=== PATIENT | male | born 1965 | race Caucasian/White ===

== ENCOUNTER → 2018-05-10 | Day surgery (SDC) | payer BC ==
[~2018-05-10] MED LIST: DEXILANT60 MG PO; FENTANYL CITRATE/PF 100MCG/2 ML INJ ONE; FLONASE16 GM; HYOSCYAMINE SULFATE 0.5 MG/ML AMP ONE; LEVOTHYROXINE50 MCG PO; LEXAPRO10 MG PO; LISINOPRIL10 MG PO; MIDAZOLAM HCL 2 MG/2 ML VIAL ONE; NEXIUM40 MG PO; PANTOPRAZOLE SO40 MG PO
--- NOTE | 2018-05-10 17:50 | Operative Report ---
DATE OF PROCEDURE: May 10, 2018 REFERRING PHYSICIAN: Dr. Luis Enrique Maxwell. PROCEDURE PERFORMED: 1. Esophagogastroduodenoscopy with esophageal dilatation and biopsies. 2. Colonoscopy. INDICATIONS FOR ESOPHAGOGASTRODUODENOSCOPY: Dysphagia, heartburn ingestion. INDICATIONS FOR COLONOSCOPY: Colorectal cancer screening, personal history of colon polyps. MEDICATION: Patient was done under MAC. Please see anesthesiologist's note. PROCEDURE: With the patient in the left lateral decubitus position, the flexible fiberoptic Olympus gastroscope was introduced into the esophagus under direct visualization without any difficulty. There was some patchy erythema noted in the distal esophagus. A mild stricture was noted at the GE junction, and that was dilated to a size 52-[place]. The scope was then advanced with ease into the stomach, and mucosa overlying the antrum and the body revealed some patchy erythema and low-grade edema, and biopsies were obtained and sent to stain for H. pylori. Several hyperplastic-appearing polyps were noted in the body of the stomach. Some were partially excised with the cold biopsy forceps. The pylorus was of normal contour and shape, was intubated with ease, and the scope was advanced all the way to the 2nd portion of the duodenum. The scope was then withdrawn slowly. Mucosa overlying the proximal 2nd portion and the duodenal bulb appeared to be within normal limits. The scope was then withdrawn back into the stomach and retroflexed, and the mucosa overlying the fundus and the cardia appeared to be within normal limits. The scope was then straightened out. The stomach was decompressed. The scope was subsequently withdrawn. Patient tolerated procedure well. IMPRESSION: 1. Distal esophagitis, mild. 2. Esophageal stricture at gastroesophageal junction dilated to a size 52-[place]. 3. Gastritis biopsied. Biopsies sent to stain for H. pylori. 4. Gastric polyps, body, some partially excised with the cold biopsy forceps. PLAN: Follow up histology. Continue Protonix 40 mg 1 p.o. q.a.m. a.c. Patient was then turned around and after adequate lubrication of the anal canal, a flexible fiberoptic Olympus colonoscope was inserted into the rectum with ease and advanced all the way to the cecum. It was then withdrawn slowly. Mucosa overlying the cecum, ascending, transverse, descending, sigmoid and rectum appeared to be within normal limits. The scope was then retroflexed into the distal rectum and small internal hemorrhoids were noted, none of which was actively bleeding. The scope was then straightened out. It was subsequently withdrawn. Patient tolerated the procedure well. IMPRESSION: Internal hemorrhoids, none actively bleeding. PLAN: Initiate high-fiber low-fat diet. Initiate high-fiber supplement. Patient might benefit from a followup colonoscopy in 5 years. Job#: [id number] cc:LUIS ENRIQUE MAXWELL DO
== END | disposition home or self-care (01) ==
LOC: OR 14:10
PROVIDERS: ATTEND Internal Medicine Gastroenterology
DX: Z12.11 Encounter for screening for malignant neoplasm of colon (principal); K31.7 Polyp of stomach and duodenum; K29.70 Gastritis, unspecified, without bleeding; K22.2 Esophageal obstruction; K20.0 Eosinophilic esophagitis; K21.9 Gastro-esophageal reflux disease without esophagitis; K64.8 Other hemorrhoids; Z87.891 Personal history of nicotine dependence; I10 Essential (primary) hypertension; F41.9 Anxiety disorder, unspecified; Z88.8 Allergy status to other drugs, medicaments and biological substances; Z01.810 Encounter for preprocedural cardiovascular examination; Z68.30 Body mass index [BMI] 30.0-30.9, adult
CPT/HCPCS: 43239; 43450; 45378; 93005; J1980; J2250

== ENCOUNTER → 2020-07-01 | Day surgery (SDC) | payer BC, OTHER ==
[~2020-07-01] MED LIST changes: -HYOSCYAMINE SULFATE 0.5 MG/ML AMP ONE; +LIOTHYRONINE SO5 MCG PO; +PROPOFOL IV EMULSION 10 MG/ML 20 ML VIAL ONE; +SIMETHICONE 40 MG/0.6 ML BTL ONE
--- NOTE | 2020-07-01 07:11 | NUR ---
SPIRITUAL CARE - Pre-Surgery Assessment: Pt in bed. Pt's at bedside. Pt reported supportive attention from family and friends. Intervention: Face Boss provided pastoral presence, hospitality, and sympathetic listening. Acquainted pt with availability of cold working inspector while hospitalized. Outcome: Pt expressed appreciation for visit. No need for follow up indicated at this time. [facility] O: [phone]
[2020-07-01 08:50] VITALS: BP 117/74
--- NOTE | 2020-07-01 09:16 | Operative Report ---
DATE OF PROCEDURE: 07/01/2020 SURGEON: Bobby Flores MD PROCEDURE: EGD with esophageal dilatation and polypectomy and biopsies. INDICATIONS FOR PROCEDURE: Dysphagia. MEDICATIONS: The patient was done under MAC, please see anesthesiologist's note. PROCEDURE IN DETAIL: With the patient in the left lateral decubitus position, a flexible fiberoptic Olympus gastroscope was introduced into the esophagus under direct visualization without any difficulty. A tight stricture was noted at the GE junction that could not be traversed with the scope. The scope was then withdrawn and then the stricture was dilated to size 46-[place]. The scope was then re-introduced into the esophagus and it was advanced with ease into the stomach traversing a small sliding hiatal hernia. Mucosa overlying the antrum and the body revealed some patchy erythema. Multiple hyperplastic-appearing polyps were noted in the body and some were partially excised with the cold biopsy forceps. Pylorus was of normal contour and shape, was intubated with ease and the scope was advanced all the way to the second portion of the duodenum. The scope was then withdrawn slowly, mucosa overlying the proximal second portion and the duodenal bulb appeared to be within normal limits. The scope was then withdrawn back into the stomach and retroflexed and the previously described hiatal hernia was also noted in the retroflexed position. Whatever was visualized the mucosa overlying the fundus revealed some hyperplastic-appearing polyps, otherwise was within normal limits. The scope was then straightened out and it was subsequently withdrawn. Some concentric rings and some longitudinal furrows were noted in the esophagus on the way out and biopsies were obtained to rule out eosinophilic esophagitis. Esophagus was dilated additionally to size 48-[place]. The patient tolerated the procedure well. IMPRESSION: 1. Rule out eosinophilic esophagitis. 2. Tight stricture GE junction, dilated to size 48-[place]. 3. Small hiatal hernia. 4. Gastric polyps, multiple, body and fundus, some partially excised with the cold biopsy forceps. 5. Gastritis, mild. PLAN: Follow up histology. Increase Protonix to 40 mg one p.o. before meals b.i.d. The patient will need an additional esophageal dilatation in approximately 3 to 4 weeks. Bobby Flores MD [facility] [place]/[facility] /[id number] cc: Luis Enrique Dumont DO
== END | disposition home or self-care (01) ==
LOC: ENDO 06:05
PROVIDERS: ATTEND Internal Medicine Gastroenterology
DX: K22.2 Esophageal obstruction (principal); K31.7 Polyp of stomach and duodenum; K29.70 Gastritis, unspecified, without bleeding; K44.9 Diaphragmatic hernia without obstruction or gangrene; G47.33 Obstructive sleep apnea (adult) (pediatric); E03.9 Hypothyroidism, unspecified; K21.9 Gastro-esophageal reflux disease without esophagitis; I10 Essential (primary) hypertension; F41.9 Anxiety disorder, unspecified; Z88.1 Allergy status to other antibiotic agents; Z01.810 Encounter for preprocedural cardiovascular examination; Z01.812 Encounter for preprocedural laboratory examination; Z11.59 Encounter for screening for other viral diseases; Z68.32 Body mass index [BMI] 32.0-32.9, adult
CPT/HCPCS: 43239; 43450; 93005; J2250; J2704; J3010; U0002

== ENCOUNTER → 2020-07-28 | Day surgery (SDC) | payer BC, OTHER ==
[~2020-07-28] MED LIST changes: -FENTANYL CITRATE/PF 100MCG/2 ML INJ ONE; +LIDOCAINE HCL 2% LOCAL INJ 5 ML SDV VIAL INJ ONE; +METOCLOPRAMIDE HCL 10 MG/2ML VIAL ONE; -MIDAZOLAM HCL 2 MG/2 ML VIAL ONE; -SIMETHICONE 40 MG/0.6 ML BTL ONE
[2020-07-28 13:15] VITALS: BP 139/60
--- NOTE | 2020-07-28 19:25 | Operative Report ---
DATE OF PROCEDURE: 07/28/2020 SURGEON: Bobby Flores MD PROCEDURE: EGD with polypectomy and esophageal dilatation. INDICATIONS FOR EGD: Dysphagia and history of esophageal stricture. MEDICATIONS: The patient was done under MAC, please see anesthesiologist's note. PROCEDURE IN DETAIL: With the patient in left lateral decubitus position, a flexible fiberoptic Olympus gastroscope was introduced into the esophagus under direct visualization without any difficulty. There was a mild esophageal stricture noted at the GE junction that was dilated to size 50-[place]. The scope was then advanced with ease into the stomach and multiple polyps were noted in the body and the fundus of the stomach, approximately 20 were removed per cold and hot snare polypectomy. The pylorus was intubated and the scope was advanced to the second portion of the duodenum. It was then withdrawn slowly. Mucosa overlying the proximal second portion and duodenal bulb appeared to be within normal limits. The scope was then withdrawn back into the stomach and retroflexed. Mucosa overlying the fundus and cardia appeared to be within normal limits. The scope was then straightened out, it was subsequently withdrawn, and the patient tolerated the procedure well. IMPRESSION: 1. Mild distal esophagitis. 2. Esophageal stricture dilated to size 50-[place]. 3. Gastritis, mild. 4. Gastric polyps, multiple, approximately 20 removed per hot and cold snare polypectomy. PLAN: Follow up histology. Continue Protonix 40 mg one p.o. a.c. b.i.d. Bobby Flores MD [facility] [place]/[facility] /[id number] cc: Luis Enrique Dumont DO
== END | disposition home or self-care (01) ==
LOC: OR 09:59
PROVIDERS: ATTEND Internal Medicine Gastroenterology
DX: K29.70 Gastritis, unspecified, without bleeding (principal); K31.7 Polyp of stomach and duodenum; K22.2 Esophageal obstruction; K20.0 Eosinophilic esophagitis; I10 Essential (primary) hypertension; R56.9 Unspecified convulsions; E66.01 Morbid (severe) obesity due to excess calories; E03.9 Hypothyroidism, unspecified; Z88.1 Allergy status to other antibiotic agents; Z01.810 Encounter for preprocedural cardiovascular examination; Z01.812 Encounter for preprocedural laboratory examination; Z11.59 Encounter for screening for other viral diseases; Z68.32 Body mass index [BMI] 32.0-32.9, adult; Z86.010 Personal history of colon polyps
CPT/HCPCS: 43251; 43450; J2001; J2704; J2765; U0002; 43239

== ENCOUNTER → 2023-08-31 | Day surgery (SDC) | payer BC, OTHER ==
[~2023-08-31] MED LIST changes: +DEXMEDETOMIDINE HCL 200 MCG/2 ML VIAL ONE; +FENTANYL CITRATE/PF 100MCG/2 ML INJ ONE; +KLONOPIN0.5 MG PO; +LACTATED RINGER'S 1,000 ML ONE; +MIDAZOLAM HCL 2 MG/2 ML VIAL ONE; +PHENYLEPHRINE HCL 1% 10 MG/ML VIAL ONE; -PROPOFOL IV EMULSION 10 MG/ML 20 ML VIAL ONE; +PROPOFOL IV EMULSION 10 MG/ML 50 ML VIAL IV ONE; +THYROID NP PO; +VIT B12 SC; +VIT D PO
[2023-08-31 10:50] VITALS: BP 136/84; PULSE 78; RESP 18; O2SAT 98
== END | disposition home or self-care (01) ==
LOC: OR 07:34
PROVIDERS: ATTEND Internal Medicine Gastroenterology
DX: K22.2 Esophageal obstruction (principal); D12.4 Benign neoplasm of descending colon; K62.1 Rectal polyp; K31.7 Polyp of stomach and duodenum; K29.70 Gastritis, unspecified, without bleeding; K21.9 Gastro-esophageal reflux disease without esophagitis; K20.90 Esophagitis, unspecified without bleeding; K44.9 Diaphragmatic hernia without obstruction or gangrene; K57.30 Diverticulosis of large intestine without perforation or abscess without bleeding; K64.8 Other hemorrhoids; Z71.3 Dietary counseling and surveillance; D64.9 Anemia, unspecified; I10 Essential (primary) hypertension; E03.9 Hypothyroidism, unspecified; Z88.1 Allergy status to other antibiotic agents; Z01.810 Encounter for preprocedural cardiovascular examination; Z79.899 Other long term (current) drug therapy; Z68.31 Body mass index [BMI] 31.0-31.9, adult; Z86.16 Personal history of COVID-19
CPT/HCPCS: 43239; 43251; 43450; 45385; 93005; C9113; J2001; J2250; J2371; J2704; J2765; J3010; J7121; 45378